=== PATIENT | male | born 2000 | race Caucasian/White ===

== ENCOUNTER 2022-02-12 03:29 | Inpatient (IN) ==
[2022-02-12] MEDS ORDERED: Al Hydrox/Mg Hydrox/Simet LIQ 30 ML UDC PO PRN (15:27)
[2022-02-12] MEDS: PROGESTERONE PO SCH (20:03)
[2022-02-12] MEDS: ESTRADIOL 2 MG PO SCH (20:03)
[2022-02-13] MEDS: Venlafaxine XR 75 mg PO SCH (07:47)
[2022-02-13] MEDS: ESTRADIOL 2 MG PO SCH ×3 (07:47→20:33)
[2022-02-13] MEDS: Vitamin THERAPEUTIC TAB PO SCH (07:48)
[2022-02-13] MEDS ORDERED: Progesterone 100 mg CAP (NF) PO SCH (09:00)
[2022-02-13] MEDS ORDERED: ESTRADIOL 2 MG PO SCH (09:00)
[2022-02-13] MEDS: PROGESTERONE PO SCH (20:33)
[2022-02-14] MEDS: Vitamin THERAPEUTIC TAB PO SCH (09:39)
[2022-02-14] MEDS: Venlafaxine XR 75 mg PO SCH (09:39)
[2022-02-14] MEDS: ESTRADIOL 2 MG PO SCH ×3 (09:40→20:30)
[2022-02-14] MEDS: PROGESTERONE PO SCH (20:30)
[2022-02-15 07:47] LABS: HDL Cholesterol 35.7 mg/dL
[2022-02-15] MEDS: Venlafaxine XR 75 mg PO SCH (10:33)
[2022-02-15] MEDS: ESTRADIOL 2 MG PO SCH ×3 (10:34→20:16)
[2022-02-15] MEDS: Vitamin THERAPEUTIC TAB PO SCH (10:34)
[2022-02-15] MEDS: PROGESTERONE PO SCH (20:16)
[2022-02-16] MEDS: Venlafaxine XR 75 mg PO SCH (09:03)
[2022-02-16] MEDS: Vitamin THERAPEUTIC TAB PO SCH (09:03)
[2022-02-16] MEDS: ESTRADIOL 2 MG PO SCH ×3 (09:04→21:01)
[2022-02-16] MEDS: PROGESTERONE PO SCH (20:59)
[2022-02-17] MEDS: Vitamin THERAPEUTIC TAB PO SCH (09:26)
[2022-02-17] MEDS: ESTRADIOL 2 MG PO SCH (09:26)
== END 2022-02-17 15:20 | disposition home or self-care (01) | DRG 885 ==
LOC: ED 03:29 → BSU 07:45
PROVIDERS: ADMIT Psychiatry & Neurology Psychiatry; ATTEND Psychiatry & Neurology Psychiatry